=== PATIENT | female | born 1970 | race Caucasian/White ===

== ENCOUNTER 2017-06-23 21:29 | Emergency (ER) | payer BC ==
[~2017-06-23] VITALS: Ht 152.4 cm; Wt 62.6 kg
--- NOTE | ~2017-06-23 | EKG ---
PATIENT: IDRIS FELDMAN UNIT #: [id number] Ventricular Rate: 72 BPM Atrial Rate: 72 BPM P-R Interval: 144 ms QRS Duration: 74 ms Q-T Interval: 410 ms QTC Calculation(Bezet): 448 ms P [place]: -2 degrees Calculated R [place]: 45 degrees Calculated T [place]: 27 degrees Diagnosis Line: Normal sinus rhythm Diagnosis Line: Normal ECG Diagnosis Line: No previous ECGs available Diagnosis Line: Confirmed by CATHERINE QUINONES MD ([id number]) on 06/24/2017 Diagnosis Line: 6:25:29 PM INTERPRETING MD: STACIE ROGERS
--- NOTE | ~2017-06-23 | CR61 ---
[facility] A Service of [place] [facility] RADIOLOGY TEXT RESULTS PATIENT: IDRIS FELDMAN LOCATION: [facility] : 72 UNIT #: [id number] AGE: [address]: William Moore MD SEX: F ORDER DR: [id number] [facility] [address] [place], [place] [address] [id number] E MR#: [id number] Acc #: [id number] NAME: IDRIS FELDMAN : 1970 SEX: F STUDY DATE/TIME: 06/23/2017 2321 UNIT: [facility] ROOM: STUDY DESCRIPTION: CR Cervical Spine Min 5 Views Attending Physician: William Moore M.D. Ordering Physician: William Moore M.D. Primary Care Physician: William Edmonds Jr., M.D. MEDICAL IMAGING REPORT This report is preliminary unless electronic signature is present EXAM Cervical spine, 06/23 at 2321. INDICATION Extreme neck pain for 1 day. No trauma. FINDINGS Six views of the cervical spine were obtained. No comparison. There is reversal of the lordosis which may indicate spasm. There is disc space narrowing and endplate spurring at 5-6 and 6-7 compatible with degenerative disc disease. No fracture or subluxation is seen. Prevertebral soft tissues are normal. IMPRESSION Degenerative disc disease at C5-6 and 6-7. Reversal of lordosis can be seen with spasm. Otherwise negative. Dictated by... William Fu Jr., M.D. THIS IS AN ELECTRONICALLY VERIFIED REPORT William Fu Jr., M.D. at 06/25/2017 5:51 AM VY/merle TD: 06/24/2017 09:55 JOB #: [id number] MEDICAL IMAGING REPORT Page 1 of 1 COPY
== END 2017-06-24 03:14 | disposition home or self-care (01) ==
LOC: CED 21:29
DX: S46.811A Strain of other muscles, fascia and tendons at shoulder and upper arm level, right arm, initial encounter (principal); E28.2 Polycystic ovarian syndrome; Z88.0 Allergy status to penicillin; Z88.5 Allergy status to narcotic agent
CPT/HCPCS: 20552; 72050; 93005; 96372; 99284; J1885